=== PATIENT | female | born 1955 | race Caucasian/White ===

== ENCOUNTER 2020-05-12 14:01 | Emergency (ER) | payer MEDICAID ==
[~2020-05-12] VITALS: Ht 157.5 cm; Wt 68.2 kg
[2020-05-12] MEDS ORDERED: LOSA25TA21 PO (14:05)
[2020-05-12] MEDS ORDERED: ALTEPLASE 2 MG/VIAL IVCATH ONE (14:30)
[2020-05-12] MEDS ORDERED: MIDAZOLAM HCL 2 MG/2 ML VIAL ONE (15:14)
[2020-05-12] MEDS ORDERED: FentaNYL CITRATE PF 100 MCG/2 ML VIAL ONE (15:15)
[2020-05-12] MEDS ORDERED: LIDOCAINE/PF 1% 30 ML VIAL ONE (15:16)
[2020-05-12] MEDS ORDERED: HEPARIN SODIUM 1000 UNITS/NS 500 ML ONE (15:16)
[2020-05-12] MEDS ORDERED: IOHEXOL 300 MG/ML 100 ML VIAL ONE (15:16)
[2020-05-12 16:03] LABS: BASOPHILS % (AUTO) 0.6 % (0.0-2.0); EOSINOPHILS % (AUTO) 2.3 % (1.0-6.0); HEMATOCRIT 37.2 % (36-46); HEMOGLOBIN 12.3 g/dL (12.0-16.0); LYMPHOCYTES # (AUTO) 1.9 K/uL (1.0-4.8); LYMPHOCYTES % (AUTO) 22.6 % (22.0-44.0); MEAN CORPUSCULAR HEMOGLOBIN 31.1 pg (26.0-34.0); MEAN CORPUSCULAR VOLUME 94 fL (80-100); MONOCYTES # (AUTO) 0.9 K/uL (0.1-1.0); MONOCYTES % (AUTO) 9.9 % (2.0-9.0); NEUTROPHILS # (AUTO) 5.5 K/uL (1.8-7.7); NEUTROPHILS % (AUTO) 64.6 % (40.0-70.0); PLATELET COUNT (AUTO) 278 K/uL (150-450); RED BLOOD CELL COUNT(AUTO) 3.94 MIL/uL (4.00-5.20); RED CELL DISTRIBUTION WIDTH 14.4 % (11.5-14.5)
[2020-05-12 16:06] LABS: CALCIUM, TOTAL 8.9 mg/dL (8.8-10.5); CREATININE 6.01 mg/dL (0.60-1.30); POTASSIUM 5.2 mmol/L (3.5-5.1)
[2020-05-12 16:10] LABS: PROTHROMBIN TIME 10.3 SEC (9.4-11.6)
[2020-05-12 16:12] LABS: ALBUMIN 3.8 g/dL (3.4-5.0); BILIRUBIN,TOTAL 0.3 mg/dL (0.1-1.0); TOTAL PROTEIN, SERUM 8.3 g/dL (6.4-8.2)
[2020-05-12 17:09] VITALS: BP 130/50
== END 2020-05-12 17:13 | disposition home or self-care (01) ==
LOC: EMS 14:05
DX: T82.49XA Other complication of vascular dialysis catheter, initial encounter (principal); I10 Essential (primary) hypertension; Z88.0 Allergy status to penicillin; X58.XXXA Exposure to other specified factors, initial encounter; Y93.89 Activity, other specified; Y92.89 Other specified places as the place of occurrence of the external cause; Y99.8 Other external cause status
CPT/HCPCS: 36415; 36902; 76937; 80053; 85025; 85610; 86850; 86900; 86901; 93005; 99285; C1725; C1769; J1644; J3490; Q9967; 36870; J2250; J2997; J3010